=== PATIENT | male | born 2000 | race Two or more races ===

== ENCOUNTER 2024-02-13 21:42 | Emergency (ER) | payer OTHER ==
[~2024-02-13] VITALS: Ht 170.2 cm; Wt 84.4 kg
[2024-02-14] MEDS ORDERED: IBUP-1456 PO (00:53)
[2024-02-14 02:00] VITALS: BP 121/78; PULSE 78; RESP 16; TEMP 98; O2SAT 96
== END 2024-02-14 02:50 | disposition home or self-care (01) ==
LOC: EDBD 21:42 → ER 21:42
DX: S60.041A Contusion of right ring finger without damage to nail, initial encounter (principal); S60.051A Contusion of right little finger without damage to nail, initial encounter; S60.511A Abrasion of right hand, initial encounter; Z79.899 Other long term (current) drug therapy; W01.0XXA Fall on same level from slipping, tripping and stumbling without subsequent striking against object, initial encounter; Y93.89 Activity, other specified; Y92.89 Other specified places as the place of occurrence of the external cause; Y99.8 Other external cause status
CPT/HCPCS: 73110; 73130